=== PATIENT | male | born 1995 | race African-American/Black ===

== ENCOUNTER → 2016-12-25 | Day surgery (SDC) | payer OTHER ==
[~2016-12-25] MED LIST: LIDOCAINE 1%/EPI 1:100,000 20 ML VIAL. ONE
[2016-12-25 07:25] VITALS: BP 134/77
--- NOTE | 2016-12-25 11:09 | PDOC ---
BRIEF OPERATIVE NOTE Pre-Op Diagnosis right thigh nodule excision of nodule aborted after making incision because the pt did not tolerate the procedure (pain) fl HERMILO Villa MD Dec 25, 2016 11:09
--- NOTE | 2016-12-25 19:06 | OP ---
DATE OF SURGERY: 12/25/2016 PREOPERATIVE DIAGNOSIS: Painful right thigh mass. POSTOPERATIVE DIAGNOSIS: Painful right thigh mass. PROCEDURE: Attempted excision of right thigh mass. DESCRIPTION OF PROCEDURE: The patient was in the minor operating room. He was prepped and draped in usual sterile fashion. The overlying skin was injected with local anesthetic. Skin incision was made with a scalpel and dissection was performed sharply as well as with a hemostat. He had considerable pain with this. Additional local was injected. The mass could be palpated. It was smooth and rubbery, but he had exquisite tenderness with palpation of the mass and any attempt to elevate it into the field to excise it resulted in the patient screaming and moving in pain. He was given the option of aborting the procedure in order to have it rescheduled under general anesthesia and this is the option that he chose; therefore, the wound was closed. The skin was closed with 4-0 Monocryl in subcuticular fashion. Sterile dressings were placed, which included Mastisol and Steri-Strips and Band-Aid. He was then discharged to home. He has an appointment to see me next week. HERMILO LEYVA MD DR: ILIA/ramos JOB#: [id number] / [id number] FREEDOM
== END | disposition home or self-care (01) ==
LOC: SURG 06:57
PROVIDERS: ATTEND Surgery
DX: R22.41 Localized swelling, mass and lump, right lower limb (principal); K21.9 Gastro-esophageal reflux disease without esophagitis
CPT/HCPCS: 11400; J3490

== ENCOUNTER 2017-01-10 10:29 | Day surgery (SDC) | payer MEDICAID ==
[~2017-01-10] VITALS: Ht 195.6 cm; Wt 78.9 kg
[~2017-01-10 10:29] MED LIST changes: +BUPIVAC MPF-EPI 0.5%-1:200000 30 ML VIAL. ONE; +CEFAZOLIN 1GM IVPB FOR OMNI 50 ML IV PRN; +FENTANYL PF 100 MCG/2 ML VIAL. IV PRN; +HYDROMORPHONE 2 MG/ML VIAL. IV PRN; +IV RINGERS,LACTATED 1000ML 1,000 ML IV SCH; +LIDOCAINE 1% 1 ML SYRINGE. ID PRN; -LIDOCAINE 1%/EPI 1:100,000 20 ML VIAL. ONE; +MORPHINE SULFATE 2 MG/ML DISP.SYRIN. IV PRN; +ONDANSETRON PF 4 MG/2 ML VIAL. IV PRN; +PROCHLORPERAZINE 10 MG/2 ML VIAL. IV PRN
[2017-01-10] MEDS ORDERED: FENTANYL PF 100 MCG/2 ML VIAL. ONE (11:50)
[2017-01-10] MEDS ORDERED: PROPOFOL 20 ML IV ONE (12:06)
[2017-01-10] MEDS ORDERED: DEXAMETHASONE SOD PHOS 20 MG/5 ML VIAL. ONE (12:06)
[2017-01-10] MEDS ORDERED: LIDOCAINE 2% 100 MG/5 ML SYRINGE. ONE (12:06)
[2017-01-10] MEDS ORDERED: ONDANSETRON PF 4 MG/2 ML VIAL. ONE (12:06)
[2017-01-10] MEDS ORDERED: DESFLURANE 31 TO 60 MINUTES IH ONE (12:06)
[2017-01-10] MEDS ORDERED: HYDR-971 PO (12:47)
[2017-01-10 13:45] VITALS: BP 133/67
--- NOTE | 2017-01-10 19:03 | OP ---
DATE OF SURGERY: 01/10/2017 PREOPERATIVE DIAGNOSIS: Right leg neuroma. POSTOPERATIVE DIAGNOSIS: Right leg neuroma. PROCEDURE: Excision of 1.5 cm right leg neuroma. SURGEON: Hermilo Leyva MD ANESTHESIA: General. ESTIMATED BLOOD LOSS: 5 mL. IV FLUIDS: 500 mL. INDICATIONS: The patient is a 21-year-old male who was previously thought to have a small subcutaneous cyst, but upon trying to excise this in the minor operating room, this was exquisitely tender, unable to be adequately anesthetized and it became apparent that this was more likely a neuroma. The incision was closed. He was rescheduled for the main operating room, this is to be done under general anesthetic as the patient simply could not tolerate excision of this lesion under local. FINDINGS: He had a 1.5 cm nodule on his right leg and what appeared to be a cutaneous nerve, proximal and distal of this was cut sharply, the mass was excised and sent to pathology for examination. PROCEDURE IN DETAIL: After informed consent was obtained, the patient was taken to the operating room and placed in supine position. After adequate induction of general anesthesia, he was prepped and draped in usual sterile fashion. His previous incision was opened with a scalpel and extended slightly. The subcutaneous tissue was opened with a hemostat and the nodule was just in the superficial subcutaneous tissue. The nodule was able to be dissected out bluntly. It was then attached to what appeared to be a cutaneous nerve proximally and distally. The nerve was placed on mild traction and then cut sharply proximally and distally, so that the cut ends of the nerve could retract back into the undissected tissue. Prior to transecting the nerve, the area was injected with local anesthetic. The mass was measured, it measured 1.5 cm. It was sent to pathology for examination. The wound was inspected, it was hemostatic. The wound was closed in layers. The dermal and subdermal layer were closed with a 3-0 Vicryl in a running fashion. Skin was closed with 4-0 Monocryl in subcuticular fashion. Sterile dressings were placed. He tolerated the procedure well. There were no apparent complications. He was then transferred in stable condition to the recovery room. HERMILO LEYVA MD DR: ILIA/ramos JOB#: [id number] / [id number] HIRA Domingo MD [facility]
--- NOTE | 2017-01-11 14:10 | PATHOLOGY ---
PATHOLOGY REPORT * * * * * * * * FINAL DIAGNOSIS: Fibroadipose and peripheral nerve tissue, right medial knee: - Neurofibroma. COMMENT: There is no evidence of malignancy. (AZAMM:; d/t: 01/11/17) REPORT ELECTRONICALLY SIGNED BY: Antonio Avila M.D. DATE/TIME: 01/11/2017 14:08 * * * * * * * * GROSS PATHOLOGY: The specimen is received in formalin labeled "Cooper Bishop, neuroma right medial knee". Received is a segment of pink-dumas, glistening soft tissue measuring 2.2 x 0.9 x 0.8 cm in greatest dimensions. Sectioning reveals yellow-dumas, glistening cut surfaces. The specimen is submitted entirely in cassette A1. (CAA; 01/10/2017) INITIAL CPT CODE(S): 29211 Professional services performed by [facility] [place] [address] Technical services performed by [facility] at [address] [place] [address], [facility] [address], [place] [address]. SPECIMEN(S) RECEIVED: A.Neuroma right medial knee CLINICAL HISTORY: Neuroma right medial knee PATIENT: COOPER BISHOP /AGE: 502/10/1995 (Age: 21) PATIENT #: [id number] ALT CASE #: SPECIMEN COLLECTION DATE: 01/10/2017 SPECIMEN RECEIVED DATE: 01/10/2017 [facility] - [address] [place] [address] - PHONE: [phone] * * * END OF REPORT * * *
== END 2017-01-10 13:54 | disposition home health service (06) ==
LOC: SURG 10:29
PROVIDERS: ATTEND Surgery
DX: D36.13 Benign neoplasm of peripheral nerves and autonomic nervous system of lower limb, including hip (principal); K21.9 Gastro-esophageal reflux disease without esophagitis; Z72.89 Other problems related to lifestyle
CPT/HCPCS: 64774; J0690; J1100; J2405; J2704; J3010; J3490